=== PATIENT | female | born 1955 | race Caucasian/White ===

== ENCOUNTER 2017-05-18 10:13 | Outpatient (CLI) | payer OTHER | END 2017-05-18 10:14 | disposition home or self-care (01) | LOC: BICMAMMO 10:13 | PROVIDERS: ATTEND Family Medicine | DX: N63.0 Unspecified lump in unspecified breast (principal) | CPT/HCPCS: G0206-LT; G0279 ==

== ENCOUNTER 2017-11-15 11:21 | Outpatient (CLI) | payer OTHER ==
--- NOTE | 2017-11-17 10:57 | MMO ---
BILATERAL SCREENING MAMMOGRAM: Date: 11/15/17 HISTORY: Screening. COMPARISON: Mammograms from 2018, 2017, and 2016. TECHNIQUE: Bilateral screening CC and MLO mammograms. This patient's mammogram was interpreted with the assistance of computer-aided detection. FINDINGS: There are scattered fibroglandular densities. No suspicious mass, architectural distortion, or microc alcifications. IMPRESSION: BIRADS 2: Benign Finding(s) Continued annual mammographic screening is recommended. POS: MAKAYLA
== END 2017-11-15 11:22 | disposition home or self-care (01) ==
LOC: SCSMAMMO 11:21
PROVIDERS: ATTEND Family Medicine
DX: Z12.31 Encounter for screening mammogram for malignant neoplasm of breast (principal)
CPT/HCPCS: 77067

== ENCOUNTER 2018-11-16 12:23 | Outpatient (CLI) | payer OTHER ==
--- NOTE | 2018-11-16 13:33 | MMO ---
Bilateral MAMMO Bilat Screen [facility]. CLINICAL HISTORY: Patient is 63 years old and is seen for screening. The patient has the following family history of breast cancer: maternal aunt, GREAT AND COLON CANCER and maternal aunt. The patient has no personal history of cancer. VIEWS: The views performed were: bilateral craniocaudal with tomosynthesis and bilateral mediolateral oblique with tomosynthesis. FILMS COMPARED: The present examination has been compared to prior imaging studies performed at [facility] on 05/18/2017, and at [facility] on 10/14/2014, 10/16/2015 and 11/10/2016. MAMMOGRAM FINDINGS: There are scattered fibroglandular densities. There are no suspicious masses, suspicious calcifications, or new areas of architectural distortion. IMPRESSION: THERE IS NO MAMMOGRAPHIC EVIDENCE OF MALIGNANCY. A ROUTINE FOLLOW-UP MAMMOGRAM IN 1 YEAR IS RECOMMENDED. THE RESULTS OF THIS EXAM WERE SENT TO THE PATIENT. ACR BI-RADS Category 1 - Negative MAMMOGRAPHY NOTE: 1. A negative mammogram report should not delay a biopsy if a dominant of clinically suspicious mass is present. 2. Approximately 10% to 15% of breast cancers are not detected by mammography. 3. Adenosis and dense breasts may obscure an underlying neoplasm. Reported by: LETICIA WOODS MD Electonically Signed: [id number]
== END 2018-11-16 12:24 | disposition home or self-care (01) ==
LOC: BICMAMMO 12:23
PROVIDERS: ATTEND Family Medicine
DX: Z12.31 Encounter for screening mammogram for malignant neoplasm of breast (principal); Z80.3 Family history of malignant neoplasm of breast
CPT/HCPCS: 77063; 77067